=== PATIENT | female | born 1965 | race Caucasian/White ===

== ENCOUNTER → 2024-08-16 16:46 | Outpatient (REF) | payer OTHER, SELFPAY | LOC: HWRAD 16:46 | PROVIDERS: ATTENDING PHYSICIAN Internal Medicine | DX: L98.9 Disorder of the skin and subcutaneous tissue, unspecified (principal) | CPT/HCPCS: 73620 ==

== ENCOUNTER → 2024-12-17 09:41 | Outpatient (REF) | payer OTHER, SELFPAY | LOC: WDC 09:41 | PROVIDERS: ATTENDING PHYSICIAN Nurse Practitioner Adult Health; FAMILY PHYSICIAN Internal Medicine | DX: N63.10 Unspecified lump in the right breast, unspecified quadrant (principal); N63.20 Unspecified lump in the left breast, unspecified quadrant; N63.12 Unspecified lump in the right breast, upper inner quadrant; N63.22 Unspecified lump in the left breast, upper inner quadrant | CPT/HCPCS: 76642 ==